=== PATIENT | female | born 1960 | race Caucasian/White ===

== ENCOUNTER 2017-02-17 09:14 | Day surgery (SDC) | payer BC, OTHER ==
[~2017-02-17] VITALS: Ht 162.6 cm; Wt 68.8 kg
[~2017-02-17 09:14] MED LIST: CLON.5 PO; MULVITMIND PO; OMEP20ER PO; PROP10 PO; VALA500; Zolpidem Tartra10 MG PO
[2017-02-17] MEDS ORDERED: GLUC500 PO (09:49)
[2017-02-17] MEDS ORDERED: CHOL10002 PO (09:50)
--- NOTE | 2017-02-17 12:22 | NUR ---
02/17/17 1222 Sara Engle DC TEACHING WAS COMPLETED W/PT AND HER JUSTYN. POLAR PK INSTRUCTIONS + H/O GIVEN. DSG TO LEFT KNEE C/D/I. NINO HOSE IN PLACE AND PT STATED PAIN "IS BARELY THERE NOW". NO NAUSEA T/O RECOVERY. TOLERATED PO SNACKS AND FLUIDS. MEDICATION INSTRUCTION GIVEN ALONG WITH OUTPT MED SHEET. RX FOR PT TO FILL. WC TO CAR W/SBA INTO VEHICLE AND NESTOR WELL
[2018-04-08] MEDS ORDERED: Valtrex1000 MG PO (13:33)
[2018-04-08] MEDS ORDERED: ESCI5 PO (13:34)
== END 2017-02-17 12:10 | disposition home or self-care (01) ==
LOC: ORSCSDS 09:14
PROVIDERS: Orthopaedic Surgery
PROC: 0SBD4ZZ Excision of Left Knee Joint, Percutaneous Endoscopic Approach (ICD-10-PCS; principal; 2017-02-17 10:30)
DX: S83.242A Other tear of medial meniscus, current injury, left knee, initial encounter (principal); Z79.899 Other long term (current) drug therapy
CPT/HCPCS: J0171; J0690; J1100; J2250; J2405; J3010; J7120

== ENCOUNTER → 2017-04-29 | Outpatient (CLI) | payer BC, OTHER ==
[~2017-04-29] MED LIST changes: +CHOL10002 PO; +GLUC500 PO
[2017-05-01 12:28] LABS: HPV Genotype 16 Not Detected (NOTDET); HPV Genotype 18 Not Detected (NOTDET)
[2017-05-05 17:52] LABS: HPV High Risk Other Not Detected (NOTDET)
== END | disposition home or self-care (01) ==
LOC: LAB 15:57
PROVIDERS: Obstetrics & Gynecology Gynecology
DX: Z12.4 Encounter for screening for malignant neoplasm of cervix (principal)
CPT/HCPCS: 87624; G0123

== ENCOUNTER 2018-04-14 07:40 | Day surgery (SDC) | payer BC, OTHER ==
[~2018-04-14] VITALS: Ht 162.6 cm; Wt 67.7 kg
[~2018-04-14 07:40] MED LIST changes: +ESCI5 PO; +Valtrex1000 MG PO
--- NOTE | 2018-04-14 09:46 | NUR ---
04/14/18 0946 Lore Olguin DELAYED START DUE TO DOCTOR BEING CALLED OUT OF ROOM THEN ONCE HE RETURNED HE HAD PHONE CALL FROM HOSPITAL. PATIENT STABLE THROUGHOUT. DID HAVE ONE EPISODE OF COUGHING WHILE WE WERE WAITING FOR PROCEDURE TO START. I DID SLIGHT JAW THRUST WHICH HELPED TO STOP THE COUGHING PATIENT REMAINED STABLE THROUGHOUT
== END 2018-04-14 09:35 | disposition home or self-care (01) ==
LOC: ORSCSDS 07:40
PROVIDERS: Internal Medicine Gastroenterology
PROC: 0DB68ZX Excision of Stomach, Via Natural or Artificial Opening Endoscopic, Diagnostic (ICD-10-PCS; principal; 2018-04-14 09:00)
PROC: 0DB58ZX Excision of Esophagus, Via Natural or Artificial Opening Endoscopic, Diagnostic (ICD-10-PCS; principal; 2018-04-14 09:00)
DX: K20.0 Eosinophilic esophagitis (principal); K22.2 Esophageal obstruction; K44.9 Diaphragmatic hernia without obstruction or gangrene; F41.9 Anxiety disorder, unspecified; Z79.899 Other long term (current) drug therapy
CPT/HCPCS: 88305; 88342; J7120

== ENCOUNTER → 2018-05-05 | Outpatient (CLI) | payer BC, OTHER ==
[2018-05-07 12:07] LABS: HPV 16 Negative (Negative); HPV 18 Negative (Negative); HPV OTHER HR TYPES Negative (Negative)
== END | disposition home or self-care (01) ==
LOC: LAB 18:59 → LAB SHORT 18:59
PROVIDERS: Obstetrics & Gynecology Gynecology
DX: Z12.4 Encounter for screening for malignant neoplasm of cervix (principal)
CPT/HCPCS: 87624; G0123

== ENCOUNTER → 2019-06-29 | Outpatient (CLI) | payer BC ==
[2019-06-30 15:10] LABS: HPV 16 Negative (Negative); HPV 18 Negative (Negative); HPV OTHER HR TYPES Negative (Negative)
== END | disposition home or self-care (01) ==
LOC: LAB 10:45 → LAB SHORT 10:45
PROVIDERS: Obstetrics & Gynecology
DX: Z01.419 Encounter for gynecological examination (general) (routine) without abnormal findings (principal)
CPT/HCPCS: 87624; G0123

== ENCOUNTER → 2020-01-22 | Outpatient (CLI) | payer BC | END | disposition home or self-care (01) | LOC: LAB SHORT 11:05 → LAB EV 11:05 | DX: Z20.828 Contact with and (suspected) exposure to other viral communicable diseases (principal) | CPT/HCPCS: U0003 ==

== ENCOUNTER → 2022-01-03 | Outpatient (CLI) | payer BC | LOC: LAB 10:44 → LAB SHORT 10:44 | DX: D48.5 Neoplasm of uncertain behavior of skin (principal) | CPT/HCPCS: 88305 ==

== ENCOUNTER 2022-03-29 07:29 | Day surgery (SDC) | payer BC ==
[~2022-03-29] VITALS: Ht 165.1 cm; Wt 71.5 kg
== END 2022-03-29 09:40 | disposition home or self-care (01) ==
LOC: ORSCSDS 07:29
PROVIDERS: Internal Medicine Gastroenterology
PROC: 0DJD8ZZ Inspection of Lower Intestinal Tract, Via Natural or Artificial Opening Endoscopic (ICD-10-PCS; principal; 2022-03-29 09:00)
DX: Z12.11 Encounter for screening for malignant neoplasm of colon (principal); K57.30 Diverticulosis of large intestine without perforation or abscess without bleeding; K64.4 Residual hemorrhoidal skin tags; F41.9 Anxiety disorder, unspecified; Z79.899 Other long term (current) drug therapy
CPT/HCPCS: J2704; J7120